=== PATIENT | female | born 1950 | race African-American/Black ===

== ENCOUNTER 2021-06-05 09:00 | Inpatient (IN) | payer MEDICARE, OTHER ==
[~2021-06-05] VITALS: Ht 177.8 cm; Wt 74.6 kg
[2021-06-05 09:56] LABS: BASOPHILS % 0.5 % (0.0-2.0); EOSINOPHILS % 0.1 % (0.0-5.0); HEMATOCRIT. 24.9 % (36.0-48.0); HEMOGLOBIN. 8.2 g/dL (12.0-16.0); LYMPHOCYTES % 20.2 % (20.0-50.0); MEAN CORPUSCULAR HEMOGLOBIN 30.2 pg (28.0-32.0); MEAN CORPUSCULAR VOLUME 91.5 fL (81.0-99.0); MEAN PLATELET VOLUME 7.8 fl (7.4-10.4); MONOCYTES % 12.1 % (2.0-8.0); NEUTROPHILS % 67.1 % (40.0-76.0); PLATELET 133 x1000/uL (130-400); RED BLOOD CELL COUNT 2.73 mill/uL (4.2-5.4); RED CELL DISTRIBUTION WIDTH 15.3 % (11.6-14.6)
[2021-06-05] MEDS ORDERED: NA PHOS,M-B/NA PHOS,DI-BA ENEMA 118ML PR PRN (11:30)
[2021-06-05] MEDS ORDERED: HYDROCODONE/ACETAMINOPHEN 5/325MG TABLET PO PRN (11:30)
[2021-06-05] MEDS ORDERED: MAGNESIUM/ALUMINUM HYDROXIDE/SIMETHICONE 30ML UDC PO PRN (11:30)
[2021-06-05] MEDS ORDERED: DIPHENHYDRAMINE 50MG/ML VIAL IV PRN (11:30)
[2021-06-05] MEDS ORDERED: ACETAMINOPHEN 650MG SUPP PR PRN (11:30)
[2021-06-05] MEDS ORDERED: ACETAMINOPHEN 325MG TABLET PO PRN (11:30)
[2021-06-05] MEDS ORDERED: GUAIFENESIN 200MG/10ML SUGAR FREE UDC PO PRN (11:30)
[2021-06-05] MEDS ORDERED: IPRATROPIUM/ALBUTEROL 0.5-3(2.5)MG/3ML NEB NEB PRN (11:30)
[2021-06-05] MEDS ORDERED: CLONIDINE 0.1MG TABLET PO PRN (11:30)
[2021-06-05] MEDS ORDERED: ONDANSETRON HCL 4MG/2ML INJ IV PRN (11:30)
[2021-06-05] MEDS ORDERED: LORAZEPAM 0.5MG TABLET PO PRN (11:30)
[2021-06-05] MEDS ORDERED: DOCUSATE SODIUM 100MG CAPSULE PO PRN (11:30)
[2021-06-05 11:52] LABS: TOTAL IRON BINDING CAPACITY 300 ug/dL (250-450)
[2021-06-05 11:57] LABS: BG BASE EXCESS 1.6 mmol/L (-2.0-2.0); BG CARBOXYHEMOGLOBIN 0.1 % (0.5-1.5); BG DEOXYHEMOGLOBIN 2.4 % (0.0-5.0); BG FRACTION INSPIRED OXYGEN 21; BG HCO3 ACT 25.7 mmol/L (22.0-26.0); BG METHEMOGLOBIN 0.3 % (0.0-1.5); BG OXYGEN SATURATION 97.6 % (92.0-98.5); BG OXYHEMOGLOBIN 97.2 % (94.0-97.0); BG PCO2 38.3 mmHg (35.0-45.0); BG PH 7.444 (7.350-7.450); BG PO2 102.4 mmHg (75.0-100.0); BG SAMPLE SITE LEFT RADIAL; BG TOTAL HEMOGLOBIN 9.2 g/dL (12.0-18.0); BG VENT MODE ROOM AIR
[2021-06-05] MEDS: ASPIRIN 81MG EC TABLET PO SCH (12:00)
[2021-06-05] MEDS ORDERED: METOPROLOL TARTRATE 25MG TABLET PO NR (14:00)
[2021-06-05 15:42] LABS: HEMATOCRIT 24.8 % (36.0-48.0); HEMOGLOBIN 8.4 g/dL (12.0-16.0)
[2021-06-05 15:55] LABS: CREATINE KINASE 34 IU/L (26-192)
[2021-06-05 15:56] LABS: CREATINE KINASE MB FRACTION < 1.0 ng/mL (0.5-3.6)
[2021-06-05 16:20] LABS: HEPATITIS B SURFACE ANTIGEN NEGATIVE
[2021-06-05 20:00] VITALS: BP 169/92
[2021-06-05] MEDS: FAMOTIDINE 20MG TABLET PO SCH (20:10)
[2021-06-05] MEDS: METOPROLOL TARTRATE 25MG TABLET PO SCH (20:11)
[2021-06-05 22:00] VITALS: BP 151/78
[2021-06-05] MEDS ORDERED: CARV25TA47 MT (23:21)
[2021-06-05] MEDS ORDERED: AMLO5TAB88 MT (23:21)
[2021-06-05] MEDS ORDERED: LOSA25TA26 MT (23:21)
[2021-06-05 23:45] VITALS: BP 139/75
[2021-06-06] VITALS (11 sets, daily range): BP systolic 145–179; BP diastolic 75–93
[2021-06-06 00:44] LABS: CREATINE KINASE 28 IU/L (26-192)
[2021-06-06 00:45] LABS: CREATINE KINASE MB FRACTION < 1.0 ng/mL (0.5-3.6)
[2021-06-06 06:48] LABS: BASOPHILS % 0.7 % (0.0-2.0); EOSINOPHILS % 0.4 % (0.0-5.0); HEMATOCRIT. 25.6 % (36.0-48.0); HEMOGLOBIN. 8.5 g/dL (12.0-16.0); LYMPHOCYTES % 22.8 % (20.0-50.0); MEAN CORPUSCULAR HEMOGLOBIN 30.6 pg (28.0-32.0); MEAN CORPUSCULAR VOLUME 91.4 fL (81.0-99.0); MEAN PLATELET VOLUME 9.4 fl (7.4-10.4); MONOCYTES % 12.4 % (2.0-8.0); NEUTROPHILS % 63.7 % (40.0-76.0); PLATELET 139 x1000/uL (130-400); RED CELL DISTRIBUTION WIDTH 15.2 % (11.6-14.6)
[2021-06-06 07:14] LABS: CHLORIDE 103 mEq/L (98-107)
[2021-06-06 07:23] LABS: LDL CHOLESTEROL 74 mg/dL (5-100)
[2021-06-06 07:25] LABS: HDL CHOLESTEROL 42 mg/dL (40-59); T4 FREE 1.14 ng/dL (0.76-1.46)
[2021-06-06] MEDS: ASPIRIN 81MG EC TABLET PO SCH (11:55)
[2021-06-06] MEDS: METOPROLOL TARTRATE 25MG TABLET PO SCH ×2 (11:55→20:25)
[2021-06-06] MEDS ORDERED: NALOXONE HCL 0.4MG/ML VIAL IV PRN (16:30)
[2021-06-06] MEDS: FAMOTIDINE 20MG TABLET PO SCH (20:22)
[2021-06-07] VITALS (10 sets, daily range): BP systolic 144–184; BP diastolic 73–92
[2021-06-07 06:49] LABS: HEMATOCRIT. 24.7 % (36.0-48.0); HEMOGLOBIN. 8.2 g/dL (12.0-16.0); MEAN CORPUSCULAR HEMOGLOBIN 30.9 pg (28.0-32.0); MEAN CORPUSCULAR VOLUME 93.4 fL (81.0-99.0); PLATELET 159 x1000/uL (130-400); RED BLOOD CELL COUNT 2.64 mill/uL (4.2-5.4); RED CELL DISTRIBUTION WIDTH 15.5 % (11.6-14.6)
[2021-06-07] MEDS ORDERED: REGADENOSON 0.4 MG/5 ML IV ONE ×2 (08:30→10:38)
[2021-06-07 08:59] LABS: PLATELET ESTIMATE NORMAL
[2021-06-07] MEDS ORDERED: AMLODIPINE 2.5MG TABLET PO SCH (09:00)
[2021-06-07] MEDS: METOPROLOL TARTRATE 25MG TABLET PO SCH (11:30)
[2021-06-07] MEDS: ASPIRIN 81MG EC TABLET PO SCH (11:30)
[2021-06-07] MEDS ORDERED: CARV25TA47 MT (14:29)
[2021-06-07] MEDS ORDERED: LOSA25TA26 MT (14:29)
[2021-06-07] MEDS ORDERED: ASPI-1497 MT (14:29)
[2021-06-07] MEDS ORDERED: AMLO5TAB88 MT (14:29)
[2021-06-07] MEDS ORDERED: AMLODIPINE 5MG TABLET PO NR (14:30)
[2021-06-07] MEDS ORDERED: HEPARIN 5000 UNITS/ML VIAL IV NR (15:15)
[2021-06-07] MEDS ORDERED: HEPARIN 100 UNITS/1 ML VIAL IV NR (16:15)
[2021-06-07] MEDS ORDERED: EPOETIN ALFA-EPBX 4,000 UNIT/ML VIAL SUBCUT SCH (21:00)
== END 2021-06-07 18:52 | disposition home or self-care (01) | DRG 205 ==
LOC: ER 09:00 → MICUSO 11:03 → EDBEDREQ 11:05 → EDBEDREQTM 11:05 → SUPCPDRO 11:26 → 3WST 16:09
PROVIDERS: ADMIT Internal Medicine; ATTEND Internal Medicine
PROC: 5A1D70Z Performance of Urinary Filtration, Intermittent, Less than 6 Hours Per Day (ICD-10-PCS; principal; 2021-06-05)
DX: M94.0 Chondrocostal junction syndrome [Tietze] (principal); N18.6 End stage renal disease; I50.33 Acute on chronic diastolic (congestive) heart failure; I13.2 Hypertensive heart and chronic kidney disease with heart failure and with stage 5 chronic kidney disease, or end stage renal disease; C90.00 Multiple myeloma not having achieved remission; E11.22 Type 2 diabetes mellitus with diabetic chronic kidney disease; Z96.651 Presence of right artificial knee joint; Z20.822 Contact with and (suspected) exposure to COVID-19; R01.1 Cardiac murmur, unspecified; D72.810 Lymphocytopenia; Z99.2 Dependence on renal dialysis; Z92.21 Personal history of antineoplastic chemotherapy; Z90.49 Acquired absence of other specified parts of digestive tract; Z79.899 Other long term (current) drug therapy; Z88.8 Allergy status to other drugs, medicaments and biological substances; Z82.49 Family history of ischemic heart disease and other diseases of the circulatory system; D63.8 Anemia in other chronic diseases classified elsewhere
CPT/HCPCS: 36415; 36600; 71045; 78452; 78582; 80048; 80053; 80061; 82375; 82550; 82553; 82728; 82805; 83540; 83550; 83735; 84439; 84443; 84484; 85014; 85018; 85025; 85044; 85379; 86705; 86709; 86803; 87340; 87426; 93005; 93017; 93306; 93970; 99285; A9500; A9558; J0885; J1642; J1644; J2405; J2785